=== PATIENT | female | born 1940 | race Caucasian/White ===

== ENCOUNTER 2017-09-24 16:56 | Inpatient (IN) | payer OTHER, MEDICAID ==
[~2017-09-24] VITALS: Ht 149.9 cm; Wt 59.0 kg
[2017-09-24 18:18] LABS: BASOPHIL % 0.1 % (0-2); PLATELET COUNT 307 x10^3mcL (130-400); RED CELL DISTRIBUTION WIDTH 14.5 % (11.5-14.5)
[2017-09-24 18:27] LABS: CALCIUM 8.7 mg/dL (8.5-10.1); CARBON DIOXIDE 26.5 mmol/L (21-32); CHLORIDE SERUM 108 mmol/L (98-107); CREATININE SERUM 0.9 mg/dL (0.6-1.0); GLUCOSE SERUM 121 mg/dL (74-106); POTASSIUM SERUM 3.9 mmol/L (3.5-5.1); SODIUM SERUM 143 mmol/L (136-145)
[2017-09-24 18:30] LABS: ALBUMIN 2.7 g/dL (3.4-5.0)
[2017-09-24 18:39] LABS: ALKALINE PHOSPHATASE 87 U/L (46-116); ALT/SGPT 17 U/L (14-59); AST/SGOT 15 U/L (15-37); BILIRUBIN TOTAL 0.29 mg/dL (0.20-1.00); LIPASE 114 IU/L (73-393); TOTAL PROTEIN, SERUM 6.8 g/dL (6.4-8.2)
[2017-09-24 19:52] LABS: MAGNESIUM 2.2 mg/dL (1.8-2.4); PHOSPHOROUS 3.3 mg/dL (2.5-4.9)
[2017-09-24 19:57] LABS: CHOLESTEROL/HDL RATIO 2.5
[2017-09-24 20:05] LABS: FREE T4 1.33 ng/dL (0.76-1.46); FREE THYROXINE INDEX 3.1 ug/dL (1.4-4.5); T4(THYROXINE) 8.5 ug/dL (4.7-13.3)
[2017-09-24 20:15] VITALS: BP 137/71
[2017-09-24 20:20] VITALS: Ht 149.9 cm; Wt 59.0 kg
[2017-09-24 20:42] LABS: T3 TOTAL 0.94 ng/mL
[2017-09-24 22:00] VITALS: BP 137/71
[2017-09-25 04:16] LABS: microscopic required? YES; urine erythrocyte 1+ (NEGATIVE)
[2017-09-25 05:41] VITALS: BP 119/65
[2017-09-25 07:00] LABS: CARBON DIOXIDE 26.5 mmol/L (21-32); CHLORIDE SERUM 116 mmol/L (98-107); CREATININE SERUM 0.7 mg/dL (0.6-1.0); GLUCOSE SERUM 108 mg/dL (74-106); POTASSIUM SERUM 4.6 mmol/L (3.5-5.1); SODIUM SERUM 144 mmol/L (136-145)
[2017-09-25 10:15] VITALS: BP 125/63
[2017-09-25 11:45] LABS: BASOPHIL % 0.5 % (0-2); PLATELET COUNT 264 x10^3mcL (130-400); RED CELL DISTRIBUTION WIDTH 14.5 % (11.5-14.5)
[2017-09-25 16:58] VITALS: BP 129/70
[2017-09-25 20:54] VITALS: BP 146/79
[2017-09-26 05:50] VITALS: BP 155/77
[2017-09-26 06:31] LABS: CALCIUM 8.7 mg/dL (8.5-10.1); CARBON DIOXIDE 27.7 mmol/L (21-32); CHLORIDE SERUM 108 mmol/L (98-107); CREATININE SERUM 0.8 mg/dL (0.6-1.0); GLUCOSE SERUM 104 mg/dL (74-106); POTASSIUM SERUM 4.2 mmol/L (3.5-5.1); SODIUM SERUM 143 mmol/L (136-145)
[2017-09-26 06:52] LABS: BASOPHIL % 0.4 % (0-2); PLATELET COUNT 312 x10^3mcL (130-400); RED CELL DISTRIBUTION WIDTH 14.3 % (11.5-14.5)
[2017-09-26 10:53] VITALS: BP 112/53
[2017-09-26] MEDS ORDERED: CYCLOBENZAPRINE5 MG PO (14:12)
[2017-09-26] MEDS ORDERED: LAC PO (14:13)
[2017-09-26] MEDS ORDERED: CLEOCIN HCL300 MG PO (14:15)
[2017-09-26] MEDS ORDERED: LEVAQUIN750 MG PO (14:15)
[2017-09-26 16:01] VITALS: BP 112/53
[2017-09-26 17:56] VITALS: BP 142/92
[2017-09-26 21:26] VITALS: BP 140/83
[2017-09-27 05:30] VITALS: BP 137/70
[2017-09-27 09:41] VITALS: BP 126/75
[2017-09-27 17:18] VITALS: BP 127/74
[2017-09-27 18:46] VITALS: BP 127/74
== END 2017-09-27 19:43 | disposition home health service (06) | DRG 177 ==
LOC: ED 16:56 → DU 18:39 → MU 18:39 → DU 20:15 → MU 09-25 10:08
PROVIDERS: Emergency Medicine; Family Medicine
DX: J69.0 Pneumonitis due to inhalation of food and vomit (principal); N17.0 Acute kidney failure with tubular necrosis; E43 Unspecified severe protein-calorie malnutrition; N39.0 Urinary tract infection, site not specified; D64.9 Anemia, unspecified; M62.838 Other muscle spasm; R31.9 Hematuria, unspecified; R91.8 Other nonspecific abnormal finding of lung field; E87.8 Other disorders of electrolyte and fluid balance, not elsewhere classified; M99.01 Segmental and somatic dysfunction of cervical region; M62.50 Muscle wasting and atrophy, not elsewhere classified, unspecified site; Z68.30 Body mass index [BMI] 30.0-30.9, adult
CPT/HCPCS: 83880; 84439; 97110-GP; 97116-GP; J0456; J0696; J1885; J2543; J7030; J7050; J7620; Q0092; Q9967